=== PATIENT | female | born 2000 | race Caucasian/White ===

== ENCOUNTER → 2023-10-13 | Outpatient (CLI) | payer OTHER | LOC: LAB 18:37 → LAB SHORT 18:37 | DX: Z32.01 Encounter for pregnancy test, result positive (principal) | CPT/HCPCS: 84702 ==

== ENCOUNTER → 2023-10-15 | Outpatient (CLI) | payer OTHER | LOC: LAB SHORT 18:35 → LAB 18:35 | DX: N91.2 Amenorrhea, unspecified (principal) | CPT/HCPCS: 84702 ==

== ENCOUNTER → 2023-11-25 | Outpatient (CLI) | payer OTHER ==
[2023-11-27 04:08] LABS: APTIMA MEDIA TYPE Urine; C. TRACHOMATIS BY TMA Negative (Negative); N. GONORRHOEAE BY TMA Negative (Negative); SPECIMEN SOURCE Urine
== END ==
LOC: LAB 13:17 → LAB SHORT 13:17
PROVIDERS: Registered Nurse Community Health
DX: Z34.92 Encounter for supervision of normal pregnancy, unspecified, second trimester (principal)
CPT/HCPCS: 87491; 87591

== ENCOUNTER 2024-01-22 20:03 | Emergency (ER) | payer OTHER ==
[~2024-01-22] VITALS: Ht 172.7 cm; Wt 86.2 kg
[2024-01-22 20:09] VITALS: BP 131/84
[2024-01-22 20:43] LABS: BASOPHILS ABSOLUTE AUTO 0.02 K/mm3 (0.00-0.23); BASOPHILS PERCENT AUTO 0 % (0-2); EOSINOPHILS ABSOLUTE AUTO 0.08 K/mm3 (0.00-0.68); EOSINOPHILS PERCENT AUTO 1 % (0-6); Hematocrit 34.7 % (33.0-51.0); Hemoglobin 11.8 g/dL (11.5-16.0); IMMATURE GRAN ABSOLUTE AUTO 0.05 K/mm3 (0.00-0.10); IMMATURE GRAN PERCENT AUTO 0 % (0-1); LYMPHOCYTES PERCENT AUTO 16 % (21-46); MONOCYTES ABSOLUTE AUTO 0.59 K/mm3 (0.16-1.47); MONOCYTES PERCENT AUTO 5 % (4-13); Mean Corpuscular HGB 29.1 pg (26.0-34.0); Mean Corpuscular Volume 86 fL (80-100); Mean Platelet Volume 9.5 fL (9.1-12.4); NEUTROPHILS ABSOLUTE AUTO 10.03 K/mm3 (1.96-9.15); NEUTROPHILS PERCENT AUTO 78 % (41-73); Platelet Count 240 K/mm3 (150-400); RDW Coefficient Variation 13.4 % (11.7-14.2); RDW Standard Deviation 42.2 fL (35.1-46.3); Red Blood Cell Count 4.06 M/mm3 (3.80-5.20); White Blood Cell Count 12.87 K/mm3 (4.00-11.30)
[2024-01-22 21:21] LABS: Albumin, Blood 3.2 g/dL (3.4-5.0); Albumin/Globulin Ratio 0.8 (0.8-1.8); Bilirubin, Total 0.1 mg/dL (0.1-1.0); Bun/Creatinine Ratio 15.2 (12.0-20.0); Creatinine, Blood 0.59 mg/dL (0.40-1.00); Globulin, Blood 3.9 g/dL (2.2-4.0); Potassium, Blood 3.7 mmol/L (3.5-5.5); Total Protein, Blood 7.1 g/dL (6.4-8.2)
== END 2024-01-22 23:34 | disposition home or self-care (01) ==
LOC: ER 20:03
PROVIDERS: Student in an Organized Health Care Education/Training Program
DX: O9A.212 Injury, poisoning and certain other consequences of external causes complicating pregnancy, second trimester (principal); S80.11XA Contusion of right lower leg, initial encounter; S70.12XA Contusion of left thigh, initial encounter; V89.2XXA Person injured in unspecified motor-vehicle accident, traffic, initial encounter; Z3A.20 20 weeks gestation of pregnancy; Z59.89 Other problems related to housing and economic circumstances
CPT/HCPCS: 76815; 80053; 84702; 85025; 99284-25

== ENCOUNTER → 2024-03-17 | Outpatient (CLI) | payer OTHER ==
[2024-03-17 16:19] LABS: Hematocrit 35.3 % (33.0-51.0); Hemoglobin 11.9 g/dL (11.5-16.0)
== END ==
LOC: LAB SHORT 14:49 → LAB 14:49
PROVIDERS: Registered Nurse Community Health
DX: Z34.93 Encounter for supervision of normal pregnancy, unspecified, third trimester (principal)
CPT/HCPCS: 82950; 85014; 85018

== ENCOUNTER → 2024-05-12 | Outpatient (CLI) | payer OTHER | END | disposition home or self-care (01) | LOC: LAB 13:35 → LAB SHORT 13:35 | DX: Z34.93 Encounter for supervision of normal pregnancy, unspecified, third trimester (principal) | CPT/HCPCS: 87081; 87150 ==

== ENCOUNTER 2024-06-10 11:30 | Inpatient (IN) | payer OTHER ==
[~2024-06-10] VITALS: Ht 172.7 cm; Wt 103.4 kg
[2024-06-10] VITALS (7 sets, daily range): BP systolic 135–165; BP diastolic 83–97
[2024-06-10] MEDS ORDERED: DiphenhydrAMINE HCl 50 MG Cap PO ONE (17:55)
--- NOTE | 2024-06-10 19:48 | NUR ---
MONITORS REMOVED. PATIENT IS SLEEPY AND WOULD LIKE TO TRY TO REST. PATIENT GIVEN CALL LIGHT AND INSTRUCTED TO CALL RN WITH ANY NEEDS OR CHANGES THAT ARISE. PATIENT UNDERSTANDS AND AGREES WITH PLAN OF CARE.
[2024-06-10] MEDS ORDERED: FentaNYL Citrate 50 MCG/ML 2 ML Injection IV PRN (22:05)
[2024-06-10] MEDS ORDERED: Ondansetron HCl 2 MG / ML 2ML Vial IV PRN (22:10)
[2024-06-10] MEDS ORDERED: Tranexamic Acid 1,000 MG in NS 100 ML IV SCH (22:10)
[2024-06-10] MEDS ORDERED: Methylergonovine Maleate 0.2MG / ML 1ML Amp IM PRN (22:10)
[2024-06-10] MEDS ORDERED: Lactated Ringer's 1,000 ML IV PRN ×3 (22:10)
[2024-06-10] MEDS ORDERED: Acetaminophen 500 MG Tab PO PRN (22:10)
[2024-06-10] MEDS ORDERED: ePHEDrine Sulfate 50 MG/ML 1ML Injection XX PRN (22:10)
[2024-06-10] MEDS ORDERED: Oxytocin 10 Unit / ML Vial IM PRN (22:10)
[2024-06-10] MEDS ORDERED: OXYTOCIN/RINGER'S LACTATE 500 ML IV PRN (22:10)
[2024-06-10] MEDS ORDERED: Misoprostol 200 MCG Tab PR PRN (22:10)
[2024-06-10] MEDS ORDERED: FentaNYL 2mcg/ml-Bup 0.1% Epd 250 ML EPI PRN (22:10)
[2024-06-10] MEDS ORDERED: Calcium Carbonate 500 MG Tab Chew PO PRN (22:10)
[2024-06-10] MEDS ORDERED: Carboprost Tromethamine 250 MCG/ML 1ML Amp IM PRN (22:10)
[2024-06-10] MEDS ORDERED: Misoprostol 200 MCG Tab BC PRN (22:10)
[2024-06-10] MEDS ORDERED: PANTOPRAZOLE SO40 M2 (22:51)
[2024-06-10] MEDS ORDERED: METPRE4DP (22:52)
[2024-06-10 23:32] LABS: BASOPHILS ABSOLUTE AUTO 0.01 K/mm3 (0.00-0.23); BASOPHILS PERCENT AUTO 0 % (0-2); EOSINOPHILS ABSOLUTE AUTO 0.07 K/mm3 (0.00-0.68); EOSINOPHILS PERCENT AUTO 1 % (0-6); Hematocrit 36.4 % (33.0-51.0); Hemoglobin 12.8 g/dL (11.5-16.0); IMMATURE GRAN ABSOLUTE AUTO 0.03 K/mm3 (0.00-0.10); IMMATURE GRAN PERCENT AUTO 0 % (0-1); LYMPHOCYTES ABSOLUTE AUTO 2.02 K/mm3 (0.84-5.20); LYMPHOCYTES PERCENT AUTO 17 % (21-46); MONOCYTES ABSOLUTE AUTO 0.83 K/mm3 (0.16-1.47); MONOCYTES PERCENT AUTO 7 % (4-13); Mean Corpuscular HGB 29.9 pg (26.0-34.0); Mean Corpuscular HGB Conc 35.2 g/dL (31.5-36.5); Mean Corpuscular Volume 85 fL (80-100); Mean Platelet Volume 10.3 fL (9.1-12.4); NEUTROPHILS ABSOLUTE AUTO 9.29 K/mm3 (1.96-9.15); NEUTROPHILS PERCENT AUTO 76 % (41-73); Platelet Count 239 K/mm3 (150-400); RDW Coefficient Variation 13.3 % (11.7-14.2); RDW Standard Deviation 41.1 fL (35.1-46.3); Red Blood Cell Count 4.28 M/mm3 (3.80-5.20); White Blood Cell Count 12.25 K/mm3 (4.00-11.30)
[2024-06-11] VITALS (43 sets, daily range): BP systolic 116–154; BP diastolic 56–99
[2024-06-11] MEDS ORDERED: Pantoprazole Sodium 40 MG Injection IV ONE (09:25)
[2024-06-11] MEDS ORDERED: Lactated Ringer's 1,000 ML IV SCH (15:10)
[2024-06-11] MEDS ORDERED: OXYTOCIN/RINGER'S LACTATE 500 ML IV SCH (15:10)
[2024-06-11] MEDS ORDERED: CeFAZolin Sodium 2,000 MG in NS 100 ML IV SCH (16:50)
[2024-06-11] MEDS ORDERED: Metoclopramide HCl 5MG / ML 2ML Vial IV SCH (16:50)
[2024-06-11] MEDS ORDERED: Citric Acid/Sodium Citrate 30 ML BTL PO SCH (16:50)
[2024-06-11] MEDS ORDERED: NS 0 ML IV ONE (17:05)
[2024-06-11] MEDS ORDERED: Azithromycin 500 MG in NS 250 ML IV ONE (19:45)
[2024-06-11] MEDS ORDERED: Lidocaine 2%-Epineph 1:200000 20 ML SDV ONE ×2 (19:53→20:12)
[2024-06-11] MEDS ORDERED: Dexamethasone Sod Phos 10 MG/ML 1ML VIAL ONE (20:12)
[2024-06-11] MEDS ORDERED: Ondansetron HCl 2 MG / ML 2ML Vial ONE (20:12)
[2024-06-11] MEDS ORDERED: Oxytocin 10 Unit / ML Vial ONE (20:12)
[2024-06-11 20:57] LABS: PCO2 Cord - Arterial 69.6 mmHg (40-50); pH Cord - Arterial 7.09 (7.28-7.35)
[2024-06-11 20:58] LABS: PCO2 Cord - Venous 67.4 mmHg (40-50); PO2 Cord - Arterial < 14 mmHg (16-20); PO2 Cord - Venous < 14.0 mmHg (28-32); pH Umbilical Cord - Venous 7.16 (7.26-7.35)
--- NOTE | 2024-06-11 21:13 | NUR ---
06/11/242112 Shirin Gallardo BABY BOY @ 2027 CORD SENT WITH RT CORD BLOOD GIVEN TO BABY RN
[2024-06-11] MEDS ORDERED: Magnesium Hydroxide Conc 10 ML UDC PO PRN (21:25)
[2024-06-11] MEDS ORDERED: OxyCODONE HCL 5 MG TAB PO PRN ×2 (21:25→21:30)
[2024-06-11] MEDS ORDERED: Lanolin Cream TOP PRN (21:25)
[2024-06-11] MEDS ORDERED: DiphenhydrAMINE HCL 25 MG Cap PO PRN (21:30)
[2024-06-11] MEDS ORDERED: Simethicone 80 MG Chew PO PRN (21:30)
[2024-06-11] MEDS ORDERED: Acetaminophen 500 MG Tab PO PRN (21:30)
[2024-06-11] MEDS ORDERED: Ondansetron HCl 2 MG / ML 2ML Vial IV PRN (21:40)
[2024-06-11] MEDS ORDERED: HYDROmorphone HCl/Pf 1MG SYR IV PRN ×2 (21:40)
[2024-06-11] MEDS ORDERED: Tranexamic Acid 100 ML IV ONE (21:40)
[2024-06-11] MEDS ORDERED: FentaNYL Citrate 50 MCG/ML 2 ML Injection IV PRN (21:45)
[2024-06-11] MEDS ORDERED: Ketorolac Tromethamine 30mg Vial IV SCH (22:00)
[2024-06-12] MEDS ORDERED: Ibuprofen 400 MG Tab PO SCH
[2024-06-12 04:02] VITALS: BP 123/68
[2024-06-12 06:37] LABS: BASOPHILS ABSOLUTE AUTO 0.04 K/mm3 (0.00-0.23); BASOPHILS PERCENT AUTO 0 % (0-2); EOSINOPHILS PERCENT AUTO 0 % (0-6); Hemoglobin 11.4 g/dL (11.5-16.0); IMMATURE GRAN ABSOLUTE AUTO 0.11 K/mm3 (0.00-0.10); IMMATURE GRAN PERCENT AUTO 1 % (0-1); LYMPHOCYTES ABSOLUTE AUTO 0.96 K/mm3 (0.84-5.20); LYMPHOCYTES PERCENT AUTO 4 % (21-46); MONOCYTES ABSOLUTE AUTO 1.25 K/mm3 (0.16-1.47); MONOCYTES PERCENT AUTO 6 % (4-13); Mean Corpuscular HGB 29.8 pg (26.0-34.0); Mean Corpuscular HGB Conc 34.5 g/dL (31.5-36.5); Mean Corpuscular Volume 86 fL (80-100); Mean Platelet Volume 10.4 fL (9.1-12.4); NEUTROPHILS PERCENT AUTO 89 % (41-73); Platelet Count 218 K/mm3 (150-400); RDW Coefficient Variation 13.4 % (11.7-14.2); Red Blood Cell Count 3.82 M/mm3 (3.80-5.20); White Blood Cell Count 22.36 K/mm3 (4.00-11.30)
[2024-06-12 07:38] VITALS: BP 117/64
[2024-06-12] MEDS ORDERED: Docusate Sodium 100 MG Cap PO SCH (09:00)
[2024-06-12] MEDS ORDERED: Prenatal Vit/FE Fumarate/FA 1 Tab PO SCH (09:00)
[2024-06-12] MEDS ORDERED: Azithromycin 500 MG in NS 250 ML IV ONE ×2 (09:00→19:20)
[2024-06-12 13:34] VITALS: BP 127/57
[2024-06-12] MEDS ORDERED: Witch Hazel/Glycerin PADS TOP SCH (13:55)
[2024-06-12 16:21] VITALS: BP 137/72
[2024-06-12] MEDS ORDERED: Ibuprofen 400 MG Tab PO PRN (19:30)
[2024-06-12 20:02] VITALS: BP 132/79
[2024-06-13 00:14] VITALS: BP 136/85
[2024-06-13 03:50] VITALS: BP 125/73
--- NOTE | 2024-06-13 07:46 | NUR ---
BREAKFAST TAKEN INTO PT ROOM. PT REQUESTS MEDS TO TAKE WITH HER BREAKFAST.
[2024-06-13 09:59] VITALS: BP 143/82
[2024-06-13 11:37] VITALS: BP 147/92
--- NOTE | 2024-06-13 13:46 | NUR ---
WORKING ON HELPING PT PERFORM ADL'S INDEPENDENTLY POST CSEC. PT WAS CALLING STAFF TO TRANSFER FROM [facility] TO HER ARMS WHILE SHE WAS IN BED. FOR TODAY, WE ARE WORKING ON PT GETTING TO THE EDGE OF THE BED AND TRANSFERING FROM [place]. PT ABLE TO INDEPENDENTLY GET UP, DRY PLASTERER FROM [employer], POSITION HERSELF IN A CHAIR AND BREASTFEED. PT REPORTS PAIN IS CURRENTLY UNDER CONTROL AND DECLINES ANY MEDICATIONS FOR PAIN. AFTER FEEDING IN CHAIR AND EATING LUNCH IN CHAIR, PT BACK TO BED INDEPENDENTLY TO SLEEP UNTIL NEWBORNS NEXT FEED. [place] DEPRESSION SCREENING TAKEN INTO ROOM FOR PT TO FILL OUT TODAY. PT AWARE AND VERBALIZED UNDERSTANDING OF NEED TO COMPLETE THE SCREENING.
[2024-06-13 17:04] VITALS: BP 133/82
--- NOTE | 2024-06-13 18:40 | NUR ---
TRASHES EMPTIED IN PT'S ROOM. FRESH ICE WATER TAKEN IN.
--- NOTE | 2024-06-13 19:15 | NUR ---
REPORT GIVEN TO MATT DANIELS
[2024-06-13 19:57] VITALS: BP 132/80
[2024-06-14 01:00] VITALS: BP 136/90
[2024-06-14 05:43] VITALS: BP 118/66
[2024-06-14 08:07] VITALS: BP 124/70
[2024-06-14 12:58] VITALS: BP 137/82
[2024-06-14 14:24] VITALS: BP 142/77
--- NOTE | 2024-06-14 15:51 | NUR ---
PT DISCHARGED AT 1425. DISCHARGE EDUCATION PRINTED AND REVIEWED WITH PT. ALL QUESTIONS WERE ANSWERED. PT PROVIDED INTRUCTION ON WHERE TO [employer] [employer] PRESCRIPTION AND WHEN TO RETURN FOR HER FOLLOW UP APPOINTMENTS. AMBULATORY PT WALKED TO VEHICLE INTO THE CARE OF HER PARTNER.
== END 2024-06-14 14:46 | disposition home or self-care (01) | DRG 787 ==
LOC: OBS 11:30 → BC 11:30 → OBS 18:40 → BC 18:41
PROVIDERS: Family Medicine; ADMIT Registered Nurse Community Health
PROC: 10S07ZZ Reposition Products of Conception, Via Natural or Artificial Opening (ICD-10-PCS; 2024-06-11)
PROC: 10H07YZ Insertion of Other Device into Products of Conception, Via Natural or Artificial Opening (ICD-10-PCS; 2024-06-11)
PROC: 00HU33Z Insertion of Infusion Device into Spinal Canal, Percutaneous Approach (ICD-10-PCS; 2024-06-11)
PROC: 3E0R3BZ Introduction of Anesthetic Agent into Spinal Canal, Percutaneous Approach (ICD-10-PCS; 2024-06-11)
PROC: 10D00Z1 Extraction of Products of Conception, Low, Open Approach (ICD-10-PCS; principal; 2024-06-11 19:00)
DX: O33.9 Maternal care for disproportion, unspecified (principal); O99.324 Drug use complicating childbirth; Z3A.40 40 weeks gestation of pregnancy; O62.1 Secondary uterine inertia; Z37.0 Single live birth; O32.4XX0 Maternal care for high head at term, not applicable or unspecified; O32.8XX0 Maternal care for other malpresentation of fetus, not applicable or unspecified; F12.90 Cannabis use, unspecified, uncomplicated; K21.9 Gastro-esophageal reflux disease without esophagitis; O99.62 Diseases of the digestive system complicating childbirth; Z79.899 Other long term (current) drug therapy; Z88.0 Allergy status to penicillin
CPT/HCPCS: 36415; 51702; 59025; 82803; 82947; 85025; 86850; 86900; 86901; 86923; 99214; A9270; J0456; J0690; J1100; J1885; J2405; J2470; J2590; J3010; J7050; J7120